=== PATIENT | female | born 1985 ===

== ENCOUNTER 2017-09-27 23:07 | Emergency (ER) | payer SELFPAY ==
[~2017-09-27] VITALS: Ht 157.5 cm; Wt 44.5 kg
--- NOTE | 2017-09-27 23:10 | ER Report ---
History and Physical Time Seen By MD: 23:09 HPI/ROS CHIEF COMPLAINT: Right lower quadrant abdominal pain HISTORY OF PRESENT ILLNESS: 36 year-old female presents with severe right lower quadrant pain for several hours. She notes fever and chills. She's had some nausea but no vomiting. She notes no dysuria. Patient denies previous abdominal surgery. Her last menstrual. Was one week ago. REVIEW OF SYSTEMS: Respiratory: No cough, no dyspnea. Cardiovascular: No chest pain, no palpitations. Gastrointestinal: As above Musculoskeletal: No back pain. Allergies: Coded Allergies: No Known Drug Allergies (Unverified , 09/27/17) Home Meds Active Scripts Ondansetron Hcl (ZOFRAN) 4 Mg Tablet, 4 MG PO Q8-12H Y for NAUSEA/VOMITING, #10 Prov:CAROLYN BOND DO 09/28/17 Oxycodone Hcl/Acetaminophen (PERCOCET 5-325 MG TABLET) 1 Each Tablet, 1 EACH PO Q4-6H Y for PAIN, #10 Prov:CAROLYN BOND DO 09/28/17 Ciprofloxacin Hcl (CIPRO) 500 Mg Tablet, 500 MG PO BID for infection, #14 Prov:CAROLYN BOND DO 09/28/17 Past Medical/Surgical History Unremarkable Constitutional Vital Sign - Last 24 Hours 09/27/17 09/27/17 09/27/17 09/27/17 23:10 23:13 23:30 23:37 Temp 102.3 Pulse 117 93 Resp 24 B/P (MAP) 125/97 (106) 125/97 146/86 (106) Pulse Ox 97 96 O2 Delivery Room Air 09/27/17 09/27/17 09/28/17 09/28/17 23:42 23:57 00:00 00:08 Temp 100.5 Pulse 97 ??? B/P (MAP) 133/97 (109) Pulse Ox 95 09/28/17 09/28/17 09/28/17 09/28/17 00:12 00:30 01:00 01:30 Pulse 95 B/P (MAP) ???/??? (1665) 137/85 (102) 126/86 (99) Pulse Ox 97 09/28/17 09/28/17 09/28/17 09/28/17 01:35 01:50 02:00 02:05 Pulse ? B/P (MAP) ???/??? (1665) 09/28/17 09/28/17 09/28/17 09/28/17 02:18 02:30 03:00 03:05 Pulse ??? B/P (MAP) 114/78 (90) 113/75 (88) 121/73 (89) 09/28/17 09/28/17 09/28/17 09/28/17 03:20 03:30 04:00 04:30 Pulse ??? B/P (MAP) 119/43 (68) 129/92 (104) 116/72 (87) 09/28/17 04:42 Temp 98.2 Physical Exam General Appearance: The patient is alert, has no immediate need for airway protection and no current signs of toxicity. Patient doubled over holding her right lower abdomen. Moderate distress, fever 102.4 HEENT: Pupils equal and round no injection. Oropharynx without redness or exudate, mucous members are moist Respiratory: Chest is non tender, lungs are clear to auscultation. Cardiac: regular rate and rhythm Gastrointestinal: Abdomen is soft, mild right lower quadrant tenderness, guarding but no rebound, no masses, bowel sounds normal. Musculoskeletal: Neck: Neck is supple and non tender. No lymphadenopathy Extremities have full range of motion and are non tender. Skin: No rashes or lesions. DIFFERENTIAL DIAGNOSIS: After history and physical exam differential diagnosis was considered for abdominal pain including but not limited to appendicitis, cholecystitis, gastritis and urinary tract infection. Medical Decision Making Data Points Result Diagram: 09/27/17 2332 09/27/17 2332 Laboratory Hematology Test 09/27/17 01:29 09/27/17 23:32 Urine Color Yellow Urine Clarity Clear Urine pH 5.0 pH (4.8-9.5) Urine Specific [place] 1.013 Urine Protein Negative mg/dL (NEGATIVE) Urine Glucose (UA) Negative mg/dL (NEGATIVE) Urine Ketones 20 mg/dL (NEGATIVE) Urine Blood Small (NEGATIVE) Urine Nitrite Positive (NEGATIVE) Urine Bilirubin Negative (NEGATIVE) Urine Urobilinogen Negative mg/dL (0.2-1.9) Urine Leukocyte Esterase Negative (NEGATIVE) Urine RBC 1 /HPF (0-2/HPF) Urine WBC 7 /HPF (0-5/HPF) Urine Squamous Epithelial Cells Many /LPF (</=FEW) Urine Bacteria Few /HPF (NONE-FEW) Urine Mucus Few /HPF (NONE-FEW) Red Blood Count 5.01 M/uL (4.17-5.56) Mean Corpuscular Volume 94.6 fL (80.0-96.0) Mean Corpuscular Hemoglobin 32.1 pg (26.0-33.0) Mean Corpuscular Hemoglobin Concent 34.0 g/dL (32.0-36.0) Red Cell Distribution Width 13.0 % (11.5-14.5) Mean Platelet Volume 8.1 fL (7.2-11.1) Neutrophils (%) (Auto) 79.5 % (39.4-72.5) Lymphocytes (%) (Auto) 8.8 % (17.6-49.6) Monocytes (%) (Auto) 10.7 % (4.1-12.4) Eosinophils (%) (Auto) 0.4 % (0.4-6.7) Basophils (%) (Auto) 0.6 % (0.3-1.4) Nucleated RBC Relative Count (auto) 0.0 /100WBC Neutrophils # (Auto) 12.9 K/uL (2.0-7.4) Lymphocytes # (Auto) 1.4 K/uL (1.3-3.6) Monocytes # (Auto) 1.7 K/uL (0.3-1.0) Eosinophils # (Auto) 0.1 K/uL (0.0-0.5) Basophils # (Auto) 0.1 K/uL (0.0-0.1) Nucleated RBC Absolute Count (auto) 0.00 K/uL Sodium Level 137 mmol/L (137-145) Potassium Level 3.6 mmol/L (3.5-5.0) Chloride Level 105 mmol/L (98-107) Carbon Dioxide Level 21 mmol/L (22-31) Blood Urea Nitrogen 9 mg/dl (7-18) Creatinine 0.70 mg/dl (0.52-1.04) Glomerular Filtration Rate Calc > 60.0 Random Glucose 104 mg/dl (75-110) Calcium Level 9.0 mg/dl (8.4-10.2) Total Bilirubin 0.6 mg/dl (0.2-1.3) Aspartate Amino Transf (AST/SGOT) 14 U/L (0-35) Alanine Aminotransferase (ALT/SGPT) 21 U/L (0-56) Alkaline Phosphatase 85 U/L (0-126) Total Protein 7.3 gm/dl (6.3-8.2) Albumin 4.1 g/dl (3.5-5.0) Amylase Level 67 U/L (0-110) Lipase 27 U/L (23-300) Human Chorionic Gonadotropin, Qual Negative (NEGATIVE) Chemistry Test 09/27/17 01:29 09/27/17 23:32 Urine Color Yellow Urine Clarity Clear Urine pH 5.0 pH (4.8-9.5) Urine Specific [place] 1.013 Urine Protein Negative mg/dL (NEGATIVE) Urine Glucose (UA) Negative mg/dL (NEGATIVE) Urine Ketones 20 mg/dL (NEGATIVE) Urine Blood Small (NEGATIVE) Urine Nitrite Positive (NEGATIVE) Urine Bilirubin Negative (NEGATIVE) Urine Urobilinogen Negative mg/dL (0.2-1.9) Urine Leukocyte Esterase Negative (NEGATIVE) Urine RBC 1 /HPF (0-2/HPF) Urine WBC 7 /HPF (0-5/HPF) Urine Squamous Epithelial Cells Many /LPF (</=FEW) Urine Bacteria Few /HPF (NONE-FEW) Urine Mucus Few /HPF (NONE-FEW) White Blood Count 16.2 k/uL (4.5-11.0) Red Blood Count 5.01 M/uL (4.17-5.56) Hemoglobin 16.1 g/dL (12.0-16.0) Hematocrit 47.4 % (34.0-47.0) Mean Corpuscular Volume 94.6 fL (80.0-96.0) Mean Corpuscular Hemoglobin 32.1 pg (26.0-33.0) Mean Corpuscular Hemoglobin Concent 34.0 g/dL (32.0-36.0) Red Cell Distribution Width 13.0 % (11.5-14.5) Platelet Count 264 K/uL (150-450) Mean Platelet Volume 8.1 fL (7.2-11.1) Neutrophils (%) (Auto) 79.5 % (39.4-72.5) Lymphocytes (%) (Auto) 8.8 % (17.6-49.6) Monocytes (%) (Auto) 10.7 % (4.1-12.4) Eosinophils (%) (Auto) 0.4 % (0.4-6.7) Basophils (%) (Auto) 0.6 % (0.3-1.4) Nucleated RBC Relative Count (auto) 0.0 /100WBC Neutrophils # (Auto) 12.9 K/uL (2.0-7.4) Lymphocytes # (Auto) 1.4 K/uL (1.3-3.6) Monocytes # (Auto) 1.7 K/uL (0.3-1.0) Eosinophils # (Auto) 0.1 K/uL (0.0-0.5) Basophils # (Auto) 0.1 K/uL (0.0-0.1) Nucleated RBC Absolute Count (auto) 0.00 K/uL Glomerular Filtration Rate Calc > 60.0 Calcium Level 9.0 mg/dl (8.4-10.2) Total Bilirubin 0.6 mg/dl (0.2-1.3) Aspartate Amino Transf (AST/SGOT) 14 U/L (0-35) Alanine Aminotransferase (ALT/SGPT) 21 U/L (0-56) Alkaline Phosphatase 85 U/L (0-126) Total Protein 7.3 gm/dl (6.3-8.2) Albumin 4.1 g/dl (3.5-5.0) Amylase Level 67 U/L (0-110) Lipase 27 U/L (23-300) Human Chorionic Gonadotropin, Qual Negative (NEGATIVE) Urinalysis Test 09/27/17 01:29 Urine Color Yellow Urine Clarity Clear Urine pH 5.0 pH (4.8-9.5) Urine Specific [place] 1.013 Urine Protein Negative mg/dL (NEGATIVE) Urine Glucose (UA) Negative mg/dL (NEGATIVE) Urine Ketones 20 mg/dL (NEGATIVE) Urine Blood Small (NEGATIVE) Urine Nitrite Positive (NEGATIVE) Urine Bilirubin Negative (NEGATIVE) Urine Urobilinogen Negative mg/dL (0.2-1.9) Urine Leukocyte Esterase Negative (NEGATIVE) Urine RBC 1 /HPF (0-2/HPF) Urine WBC 7 /HPF (0-5/HPF) Urine Squamous Epithelial Cells Many /LPF (</=FEW) Urine Bacteria Few /HPF (NONE-FEW) Urine Mucus Few /HPF (NONE-FEW) EKG/Imaging Imaging Results: CT scan of the abdomen and pelvis with contrast was obtained. The results of the study are ABDOMEN/PELVIS WITH CONTRAST Additional pertinent History: Right lower quadrant pain TECHNIQUE: Spiral scan was through the abdomen and pelvis during injection of nonionic iodinated intravenous contrast. Contrast: 75 mL of IV Isovue-370. One of the following dose optimization techniques was utilized in the performance of this exam: Automated exposure control; adjustment of the mA and/ or kV according to the patient's size; or use of an iterative reconstruction technique. Specific details can be referenced in the facility's radiology CT exam operational policy. COMPARISON STUDIES: none. FINDINGS: Liver / biliary: negative Pancreas: negative Spleen: negative Adrenal glands: negative Kidneys / retroperitoneum: 2 focal areas of diminished cortical attenuation one in the inferior anterolateral aspect of the right kidney (image 166) and in the posterior mid aspect of the right kidney (image 144) consistent with multifocal pyelonephritis. Pelvic structures: Bilateral ovarian cysts. Small amount of free fluid likely physiologic in the cul-de-sac. Uterus and adnexal regions are unremarkable. Bowel / peritoneum / mesenteries: Appendix well-visualized with no appendiceal stranding or inflammation noted. Vessels: negative Musculoskeletal / Body wall: negative Lymph node assessment: negative Lower chest: negative IMPRESSION: 1. Right kidney multifocal pyelonephritis. 2. Free fluid within the pelvis likely representing physiologic fluid from a ruptured ovarian cyst. Bilateral ovarian cysts identified. 3. Normal appendix The study was read by the radiologist. I viewed the images myself on the PACS system. ED Course/Re-evaluation Clinical Indication for ER IV: Hydration, IV Access ED Course Patient was admitted to an examination room. H&P was done. The differential diagnosis was considered. On clinical examination. Patient has some right lower quadrant tenderness. She has a fever and a white blood cell count returns at 16,000 with a left shift. Her urinalysis take several hours to collect after aggressive IV fluid hydration. She has no gross signs of urinary tract infection. A CT scan is performed of the abdomen and pelvis to rule out appendicitis. The appendix appeared normal. The radiologist notes right-sided pyelonephritis. Patient's treated with Rocephin IV and Cipro orally. She is discharged home on Cipro, Percocet and Zofran. She is advised to take ibuprofen for fever control. She is advised to increase her fluid intake. Decision to Disposition Date: Sep 28, 2017 Decision to Disposition Time: 03:03 Depart Departure Latest Vital Signs Vital Signs Date Time Temp Pulse Resp B/P (MAP) Pulse Ox O2 Delivery O2 Flow Rate FiO2 09/28/17 04:42 98.2 09/28/17 04:30 116/72 (87) 09/28/17 03:20 ??? 09/28/17 00:12 97 09/27/17 23:13 24 Room Air Impression: Primary Impression: Pyelonephritis Additional Impressions: Fever Right lower quadrant abdominal pain Condition: Improved Disposition: HOME OR SELF-CARE Referrals: MANJIT ANGUIANO MD New Scripts Ondansetron Hcl (ZOFRAN) 4 Mg Tablet 4 MG PO Q8-12H Y for NAUSEA/VOMITING, #10 Prov: CAROLYN BOND DO 09/28/17 Oxycodone Hcl/Acetaminophen (PERCOCET 5-325 MG TABLET) 1 Each Tablet 1 EACH PO Q4-6H Y for PAIN, #10 Prov: CAROLYN BOND DO 09/28/17 Ciprofloxacin Hcl (CIPRO) 500 Mg Tablet 500 MG PO BID for infection, #14 Prov: CAROLYN BOND DO 09/28/17 Patient Instructions: Kidney Infection (ED) Additional Instructions: Take ibuprofen 200 mg 3 tablets 3 times a day for inflammatory pain relief and fever reduction Drink plenty of fluids to flush out the infection Follow-up with primary care if unimproved in 3-5 [address] You can see Dr. Anguiano Problem Qualifiers Additional Impressions: Fever Fever type: unspecified Qualified Codes: R50.9 - Fever, unspecified CAROLYN BOND DO Sep 27, 2017 23:10
[2017-09-27] MEDS ORDERED: NS(*) 0.9% 1000 ML BAG 1,000 ML IV ONE (23:13)
[2017-09-27] MEDS ORDERED: ONDANSETRON 4 MG/2 ML VIAL IVP ONE (23:15)
[2017-09-27] MEDS ORDERED: fentaNYL CITR 100 MCG/2 ML AMP IVP ONE (23:15)
[2017-09-27 23:39] LABS: PLATELET COUNT, AUTOMATED 264 K/uL (150-450)
[2017-09-28] MEDS ORDERED: NS(*) 0.9% 1000 ML BAG 1,000 ML IV ONE (00:40)
[2017-09-28] MEDS ORDERED: fentaNYL CITR 100 MCG/2 ML AMP IVP ONE (01:45)
[2017-09-28] MEDS ORDERED: IOPAMIDOL 76% 75 ML INFUS BTL 75 ML ONE (01:55)
[2017-09-28] MEDS ORDERED: NS 0.9% 50 ML VIAL 50 ML ONE (01:55)
[2017-09-28] MEDS ORDERED: cefTRIAXone(*) 1 GM VIAL 1 GM in NS(*) 0.9% 100 ML ADDVANT BAG 100 ML IVPB ONE (02:55)
[2017-09-28] MEDS ORDERED: ONDA4TAB97 PO (03:05)
[2017-09-28] MEDS ORDERED: ONDANSETRON 4 MG ODT TH SL ONE (03:05)
[2017-09-28] MEDS ORDERED: CIPR-344 PO (03:05)
[2017-09-28] MEDS ORDERED: CIPROFLOXACIN 500 MG TAB PO ONE (03:05)
[2017-09-28] MEDS ORDERED: oxyCODONE/ACETAMIN 5/325MG TH 2 TAB/BOTTLE PO ONE (03:05)
[2017-09-28] MEDS ORDERED: OXYC-865 PO (03:05)
--- NOTE | 2017-09-28 03:21 | RADIOLOGY IMAGING REPORT ---
FACILITY: [facility] - [place] PATIENT NAME: Marcela Hooks : 1985 MR: [id number] V: [id number] EXAM DATE: ORDERING PHYSICIAN: CAROLYN OBND TECHNOLOGIST: Location: [facility] [place] Patient: Marcela Hooks : 1985 Visit/Account:[id number] Date of Sevice: 09/28/2017 ABDOMEN/PELVIS WITH CONTRAST Additional pertinent History: Right lower quadrant pain TECHNIQUE: Spiral scan was through the abdomen and pelvis during injection of nonionic iodinated in travenous contrast. Contrast: 75 mL of IV Isovue-370. One of the following dose optimization techniques was utilized in the performance of this exam: Autom ated exposure control; adjustment of the mA and/or kV according to the patient's size; or use of an i terative reconstruction technique. Specific details can be referenced in the facility's radiology C T exam operational policy. COMPARISON STUDIES: none. FINDINGS: Liver / biliary: negative Pancreas: negative Spleen: negative Adrenal glands: negative Kidneys / retroperitoneum: 2 focal areas of diminished cortical attenuation one in the inferior anter olateral aspect of the right kidney (image 166) and in the posterior mid aspect of the right kidney ( image 144) consistent with multifocal pyelonephritis. Pelvic structures: Bilateral ovarian cysts. Small amount of free fluid likely physiologic in the c ul-de-sac. Uterus and adnexal regions are unremarkable. Bowel / peritoneum / mesenteries: Appendix well-visualized with no appendiceal stranding or inflammat ion noted. Vessels: negative Musculoskeletal / Body wall: negative Lymph node assessment: negative Lower chest: negative IMPRESSION: 1. Right kidney multifocal pyelonephritis. 2. Free fluid within the pelvis likely representing physiologic fluid from a ruptured ovarian cyst. B ilateral ovarian cysts identified. 3. Normal appendix Report Dictated By: Trent Jimenez MD at 09/28/2017 2:39 AM Report E-Signed By: Trent Jimenez MD at 09/28/2017 2:51 AM WSN:[id number]
[2017-09-28] MEDS ORDERED: KETOROLAC 30 MG/ML VIAL IVP ONE (03:55)
[2017-09-28 04:30] VITALS: BP 116/72
== END 2017-09-28 05:00 | disposition home or self-care (01) ==
LOC: ER 23:08
DX: N12 Tubulo-interstitial nephritis, not specified as acute or chronic (principal)
CPT/HCPCS: 74177; 81001; 82150; 83690; 84703; 85025; 87077; 87088; 87186; 96361; 96365; 96375; 96376; 99283; J0696; J1885; J2405; J3010; J7030; J7050; Q9967; S0119; 82040; 82247; 82310; 82374; 82435; 82565; 82947; 84075; 84132; 84155; 84295; 84450; 84460; 84520

== ENCOUNTER → 2017-11-25 | Outpatient (CLI) | payer SELFPAY ==
[~2017-11-25] MED LIST: CIPR-344 PO; ONDA4TAB97 PO; OXYC-865 PO
== END ==
LOC: LAB 15:38
PROVIDERS: ATTEND Nurse Practitioner Primary Care
DX: R30.0 Dysuria (principal); R10.31 Right lower quadrant pain
CPT/HCPCS: 81001; 81025